=== PATIENT | female | born 1965 | race Caucasian/White ===

== ENCOUNTER 2024-07-06 15:03 | Day surgery (SDC) | payer BC ==
[2024-07-06] MEDS ORDERED: Depo-Medrol 40 MG/ML IM ONE (15:04)
[2024-07-06] MEDS ORDERED: BUPIVACAINE 0.5% VIAL IJ ONE (15:04)
[2024-07-06] MEDS ORDERED: DIPRIVAN 200 MG/20 ML IV ONE ×2 (16:41→16:52)
--- NOTE | 2024-07-06 21:07 | XRAY ---
Indication: Left knee injection. Intraoperative fluoroscopy provided for 6 seconds. Single digital spot image submitted for interpretation demonstrates needle tip projecting over left femur intercondylar notch. Small amount of contrast injected for needle tip placement. Correlate with intraoperative findings/report.
--- NOTE | 2024-07-06 21:07 | XRAY ---
Indication: Right knee injection. Intraoperative fluoroscopy provided for 6 seconds. Single digital spot image submitted for interpretation demonstrates needle tip projecting over right femur intercondylar notch. Small amount of contrast injected for needle tip placement. Correlate with intraoperative findings/report.
--- NOTE | 2024-07-07 08:40 | XRAY ---
6 seconds of fluoroscopy used in surgery for a right intra-articular knee injection.
--- NOTE | 2024-07-07 08:40 | XRAY ---
6 seconds of fluoroscopy used in surgery for a left intra-articular knee injection.
== END 2024-07-06 17:12 | disposition home or self-care (01) ==
LOC: SDC-PAIN 15:03
PROVIDERS: ATTEND Psychiatry & Neurology Pain Medicine
DX: M17.0 Bilateral primary osteoarthritis of knee (principal); R73.03 Prediabetes
CPT/HCPCS: 73560; 77002; 82947; J2704